=== PATIENT | female | born 1960 | race African-American/Black ===

== ENCOUNTER 2019-11-05 09:38 | Emergency (ER) | payer OTHER ==
[~2019-11-05] VITALS: Ht 167.6 cm; Wt 72.5 kg
[2019-11-05] MEDS ORDERED: SODIUM CHLORIDE 0.9% 1,000 ML IV ONE (10:09)
[2019-11-05] MEDS ORDERED: METOCLOPRAMIDE HCL 10MG/2ML VIAL IV ONE (10:15)
[2019-11-05] MEDS ORDERED: DIPHENHYDRAMINE 50MG/ML VIAL IV ONE (10:15)
[2019-11-05 10:41] LABS: HEMATOCRIT. 33.5 % (36.0-48.0); HEMOGLOBIN. 11.7 g/dL (12.0-16.0); MEAN CORPUSCULAR HEMOGLOBIN 29.9 pg (28.0-32.0); MEAN CORPUSCULAR VOLUME 85.6 fL (81.0-99.0); MEAN PLATELET VOLUME 6.7 fl (7.4-10.4); PLATELET 313 x1000/uL (130-400); RED BLOOD CELL COUNT 3.91 mill/uL (4.2-5.4)
[2019-11-05 10:43] LABS: CHLORIDE 97 mEq/L (98-107)
[2019-11-05 11:17] LABS: PLATELET ESTIMATE NORMAL
[2019-11-05] MEDS ORDERED: KETOROLAC 15MG/ML VIAL IV ONE (11:30)
[2019-11-05] MEDS ORDERED: LIDOCAINE HCL 1% 20ML VIAL (Pyxis) INJ INFIL NR (12:15)
[2019-11-05] MEDS ORDERED: LORAZEPAM 2MG/ML CPJ IV ONE (13:30)
[2019-11-05] MEDS ORDERED: MORPHINE SULFATE 4 MG/ML CPJ (NOT FOR IM USE) IV ONE ×2 (13:45→18:30)
[2019-11-05 15:31] LABS: GLUCOSE CSF 73 mg/dL (41-75)
[2019-11-05] MEDS ORDERED: VANCOMYCIN 1 G PREMIX 200 ML IV SCH (17:00)
[2019-11-05] MEDS ORDERED: CEFTRIAXONE 2 G PREMIX 50 ML IV ONE (17:00)
[2019-11-05] MEDS ORDERED: ONDANSETRON HCL 4MG/2ML INJ IV STA (21:39)
[2019-11-05] MEDS ORDERED: ACETAMINOPHEN 325MG TABLET PO STA (21:39)
[2019-11-05] MEDS ORDERED: MORPHINE SULFATE 4 MG/ML CPJ (NOT FOR IM USE) IV STA (21:39)
[2019-11-05 22:05] VITALS: BP 124/71
[2019-11-07 07:07] LABS: HIV SCREEN 4G Non Reactive (Non Reactive)
== END 2019-11-05 23:30 | disposition short-term general hospital (02) ==
LOC: ER 09:38 → CANBEDREQ 11-06 05:04
DX: R51 Headache (principal); D72.9 Disorder of white blood cells, unspecified; D72.825 Bandemia; E78.00 Pure hypercholesterolemia, unspecified; Z91.81 History of falling
CPT/HCPCS: 36415; 62270; 70450; 80053; 82945; 84157; 85025; 87070; 87205; 87252; 87389; 87529; 87899; 89050; 96361; 96365; 96368; 96375; 96376; 99285; J0696; J1200; J1885; J2060; J2270; J2405; J2765; J3370; J7030; J3490

== ENCOUNTER 2022-04-04 15:55 | Emergency (ER) | payer OTHER ==
[~2022-04-04] VITALS: Ht 167.6 cm; Wt 73.0 kg
[2022-04-04 15:57] VITALS: BP 140/86
[2022-04-04] MEDS ORDERED: ACETAMINOPHEN 325MG TABLET PO ONE (18:30)
[2022-04-04] MEDS ORDERED: ALBU6.7H9 INH (19:20)
[2022-04-04] MEDS ORDERED: ACET-2708 MT (19:20)
== END 2022-04-05 01:20 | disposition home or self-care (01) ==
LOC: ER 15:55
DX: U07.1 COVID-19 (principal); E78.00 Pure hypercholesterolemia, unspecified
CPT/HCPCS: 71045; 87426; 99284; C9803